=== PATIENT | male | born 1945 | race Asian ===

== ENCOUNTER → 2024-07-12 | Outpatient (CLI) | payer MEDICARE, SELFPAY ==
--- NOTE | 2024-07-12 | XR_ITS ---
Examination: PA lateral chest 2 views TECHNIQUE: Upright PA lateral chest 2 views Exam date and time: July 12, 2024 1303 hours INDICATIONS: Coughing beginning 2 months ago. FINDINGS: Mild hyperexpansion Normal heart size No pneumonia or pulmonary edema IMPRESSION: No pneumonia identified
== END | disposition home or self-care (01) ==
PROVIDERS: PCP Physician Assistant; Referring Provider Physician Assistant; Visit Provider Physician Assistant
DX: R05.3 Chronic cough (principal)
CPT/HCPCS: 71046

== ENCOUNTER → 2024-10-21 | Outpatient (CLI) | payer MEDICARE, MEDICAID, SELFPAY ==
--- NOTE | 2024-10-21 | XR_ITS ---
Examination: Foot bilateral, 6 views Technique: AP, oblique, lateral views each foot total 6 views Date and time of exam: October 21, 2024 1222 hours INDICATIONS: Burning sensation in both feet beginning one month ago. FINDINGS: Significant osteopenia No fracture or dislocation involving either foot Bilateral moderate narrowing first metatarsophalangeal joints Moderate bilateral plantar posterior bony calcaneal spurs Ossification bilaterally in the plantar fascia IMPRESSION: Moderate bilateral narrowing first metatarsophalangeal joints Bilateral moderate plantar posterior bony calcaneal spurs Bilateral plantar fasciitis
== END | disposition home or self-care (01) ==
LOC: CDIM 11:41
PROVIDERS: PCP Physician Assistant; Referring Provider Physician Assistant; Visit Provider Physician Assistant
DX: M77.32 Calcaneal spur, left foot (principal); M77.31 Calcaneal spur, right foot; M72.2 Plantar fascial fibromatosis; M25.872 Other specified joint disorders, left ankle and foot; M25.871 Other specified joint disorders, right ankle and foot
CPT/HCPCS: 73630